=== PATIENT | female | born 1975 | race Caucasian/White ===

== ENCOUNTER 2017-06-18 12:44 | Emergency (ER) | payer BC ==
[~2017-06-18] VITALS: Ht 162.6 cm; Wt 52.0 kg
[2017-06-18 12:52] VITALS: Ht 162.6 cm; Wt 52.0 kg
[2017-06-18] MEDS ORDERED: ONDANSETRON 4 MG INJ IV STA (13:31)
[2017-06-18] MEDS ORDERED: SOD CHLORIDE 0.9% 1,000 ML IV STA (13:31)
[2017-06-18] MEDS ORDERED: KETOROLAC 30 MG INJ IV STA (13:31)
[2017-06-18 14:09] LABS: ADD UMIC NO; UR ASCORBIC ACID NEGATIVE (NEGATIVE); UR BILIRUBIN (Dip) NEGATIVE (NEGATIVE); UR BLOOD (Dip) NEGATIVE (NEGATIVE); UR CLARITY CLEAR (CLEAR); UR COLOR STRAW (YELLOW); UR GLUCOSE (Dip) NEGATIVE (NEGATIVE); UR KETONES (Dip) NEGATIVE (NEGATIVE); UR LEUKOCYTE ESTERASE (Dip) NEGATIVE Leu/ul (NEGATIVE); UR NITRITE (Dip) NEGATIVE (NEGATIVE); UR SPECIFIC GRAVITY (Dip) 1.003 (1.003-1.030); UR TOTAL PROTEIN (Dip) NEGATIVE (NEGATIVE); UR UROBILINOGEN (Dip) NEGATIVE (NEGATIVE)
[2017-06-18 14:41] LABS: BASOPHILS % 0.5 % (0.0-2.0); EOSINOPHILS # 0.2 10^3/ul (0.0-0.5); EOSINOPHILS % 5.5 % (0.0-7.0); HEMATOCRIT 38.5 % (37.0-47.0); HEMOGLOBIN 13.4 g/dl (12.0-16.0); LYMPHOCYTES # 0.9 10^3/ul (0.8-2.9); LYMPHOCYTES % 20.5 % (15.0-51.0); MEAN CORPUSCULAR HEMOGLOBIN 31.4 pg (29.0-33.0); MEAN CORPUSCULAR HGB CONC 34.8 g/dl (32.0-37.0); MEAN CORPUSCULAR VOLUME 90.2 fl (82.0-101.0); MEAN PLATELET VOLUME 10.4 fl (7.4-10.4); MONOCYTE # 0.5 10^3/ul (0.3-0.9); MONOCYTES % 10.3 % (0.0-11.0); NEUTROPHIL # 2.7 10^3/ul (1.6-7.5); PLATELET COUNT 243 10^3/UL (140-415); RED BLOOD COUNT 4.27 10^6/ul (4.20-5.40); RED CELL DISTRIBUTION WIDTH 12.4 % (11.5-14.5); WHITE BLOOD COUNT 4.4 10^3/ul (4.8-10.8)
--- NOTE | 2017-06-18 14:45 | RADRPT ---
PROCEDURE: CT Abdomen and Pelvis without contrast CLINICAL INDICATION: Abdominal pain, GI bleed with inflammatory bowel syndrome and mucus discharge for rectum TECHNIQUE: Transaxial images were obtained through the abdomen and pelvis on a multi-slice scanner without the intravenous contrast administration. Some oral contrast had previously been given. Sagi ttal and coronal re-formations were subsequently reconstructed. One or more of the following dose reduction techniques were used: - Automated exposure control. - Adjustment of the mA and/or kV according to patient size. - Use of iterative reconstruction technique. Radiation dose: CTDIvol = 4.34 mGy; DLP = 242.70 mGy-cm. COMPARISON: No prior studies are available for comparison. FINDINGS: Lung bases: The visualized lung bases appear unremarkable. Bilateral breast implants are noted. Liver: Normal in size and in attenuation. There is no focal lesion. Gallbladder: The wall is not thickened. No radiopaque stones are identified. Bile ducts: The intra and extrahepatic bile ducts are normal in caliber. Pancreas: Appears normal with no mass or inflammation evident. Spleen: Normal in size with no focal lesion. Adrenals: Normal with no mass identified. Kidneys, ureters and bladder: The right kidney appears normal. The left kidney is quite elongated a nd there appears to be a duplex collecting system. The left renal contour is lobulated compatible w ith cortical scarring. The ureters are normal in caliber and no ureteroliths are identified. The erika dder appears unremarkable. 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 No adnexal mass is evident. Phleboliths are seen in the pelvis. Stomach and bowel: The stomach and bowel appear unremarkable. Substantial stool is seen throughout the colon with no evidence of bowel obstruction or inflammation. Appendix: Portions of a normal-appearing vermiform appendix are evident. Peritoneum: No free intraperitoneal fluid or air is identified. Aorta: Normal in caliber with no aneurysmal dilatation. There is minimal atherosclerotic vascular ca lcification. IVC: Unremarkable. Lymph nodes: No pathologically enlarged nodes are identified. Osseous structures: The osseous elements appear intact. IMPRESSION: 1. The left kidney appears quite elongated with the suggestion of a duplex collecting system and mi ld cortical scarring. The right kidney appears normal. There is no evidence of urinary outflow obs truction or ureterolithiasis and the bladder appears normal. 2. Substantial stool is seen throughout the colon without evidence of bowel obstruction or inflamma tion with portions of an unremarkable appearing vermiform appendix evident. 3. The endometrial cavity appears bicornuate. 4. There is no free intraperitoneal fluid or air. 5. Bilateral breast implants. Physician All Date Time Electronically viewed and signed by Rick Colon Physician on 06/18/2017 14:45 RH/
[2017-06-18 14:58] LABS: ALBUMIN 4.7 g/dl (3.3-4.9); ALBUMIN/GLOBULIN RATIO 1.34; BILIRUBIN,INDIRECT 0.3 mg/dl (0-1.1); BILIRUBIN,TOTAL 0.3 mg/dl (0.2-1.3); CALCIUM 9.3 mg/dl (8.4-10.2); CREATININE 0.83 mg/dl (0.44-1.00); POTASSIUM 3.8 mmol/L (3.5-5.1); TOTAL PROTEIN 8.2 g/dl (6.1-8.1)
--- NOTE | 2017-06-18 15:20 | ERD ---
ER Documentation Chief Complaint Date/Time DATE: 06/18/17 TIME: 15:16 Chief Complaint BIB SELF C/O RB X 10 DAYS, WORSE W BM, DIFF ABD PAIN, LBM X 2D, MUCOUS W BM HPI Patient is a 42-year-old female with past medical history of depression, general anxiety disorder, proctitis, external hemorrhoids, fibromyalgia, chronic constipation, chronic fatigue who presents to the emergency department for a"flare up of my GI problems." Patient states that she has had chronic rectal bleeding for the last 3 years. Patient states over the last 2-3 weeks that she has had rectal bleeding as well as mucousy stools. Patient reports diffuse abdominal pain and cramping. Patient denies any dysuria, frequency, urgency. Patient denies any excessive vaginal bleeding. Patient admits to nausea however she denies any vomiting. She reports tactile fevers. Of note, she states she has been to numerous hospitals as well as seen numerous GI specialist. Patient had endoscopy and colonoscopy in 2013 which showed "colitis " however patient states that she believes her symptoms are most consistent with "ulcerative colitis." She denies any recent travel. No sick contacts. Patient has an appointment with a new GI specialist on July 05. ROS All systems reviewed and are negative except as per history of present illness. Medications Home Meds Active Scripts Dicyclomine Hcl* (Bentyl*) 10 Mg Capsule, 10 MG PO QID, #20 CAP Prov:MARY ANN KING PA-C 06/18/17 Hydrocodone/Acetaminophen ([place] 5-325 Tablet) 1 Each Tablet, 1 TAB PO Q6H Y for PAIN, #7 TAB Prov:MARY ANN KING PA-C 06/18/17 Docusate Sodium* (Colace*) 100 Mg Capsule, 100 MG PO TID, #30 CAP Prov:MARY ANN KING PA-C 06/18/17 Allergies Allergies: Coded Allergies: egg (Verified Allergy, Unknown, 06/18/17) FmHx Family History: No diabetes Physical Exam Vitals Vital Signs Date Time Temp Pulse Resp B/P Pulse Ox O2 Delivery O2 Flow Rate FiO2 06/18/17 12:52 99.3 105 18 139/90 100 Physical Exam GENERAL: Well-developed, well-nourished female. Appears in no acute distress. HEAD: Normocephalic, atraumatic. EYES: Pupils are equally reactive bilaterally. EOMs grossly intact. No conjunctival erythema. ENT: Moist mucous membranes. No uvula deviation. No kissing tonsils. NECK: Supple. No meningismus. Normal range of motion of the neck. LUNG: Clear to auscultation bilaterally. No rhonchi, wheezing, rales or coarse breath sounds. HEART: Regular rate and rhythm. No murmurs, rubs or gallops. ABDOMEN: Soft band nondistended. Tender to palpation in all 4 quadrants. Positive bowel sounds in all four quadrants. No rebound tenderness, no guarding. (-) McBurney's point tenderness. No CVA tenderness. RECTAL: Normal anus with external hemorrhoids noted. Unable to rule out internal hemorrhoids. Normal anal sphincter tone. Stool guaiac positive. BACK: No midline tenderness. EXTREMITIES: Equal pulses bilaterally. No peripheral clubbing, cyanosis or edema. No unilateral leg swelling. NEUROLOGIC: Alert and oriented. Moving all four extremities without any difficulty. Normal speech. Steady gait. SKIN: Normal color. Warm and dry. No rashes or lesions. Result Diagram: 06/18/17 1428 06/18/17 1428 Results 24 hrs Laboratory Tests Test 06/18/17 13:45 06/18/17 14:28 06/18/17 15:02 Urine Color STRAW Urine Clarity CLEAR Urine pH 7.0 Urine Specific [place] 1.003 Urine Ketones NEGATIVEmg/dL Urine Nitrite NEGATIVEmg/dL Urine Bilirubin NEGATIVEmg/dL Urine Urobilinogen NEGATIVEmg/dL Urine Leukocyte Esterase NEGATIVELeu/ul Urine Hemoglobin NEGATIVEmg/dL Urine Glucose NEGATIVEmg/dL Urine Total Protein NEGATIVEmg/dl White Blood Count 4.410^3/ul Red Blood Count 4.2710^6/ul Hemoglobin 13.4g/dl Hematocrit 38.5% Mean Corpuscular Volume 90.2fl Mean Corpuscular Hemoglobin 31.4pg Mean Corpuscular Hemoglobin Concent 34.8g/dl Red Cell Distribution Width 12.4% Platelet Count 87771^3/UL Mean Platelet Volume 10.4fl Neutrophils % 63.0% Lymphocytes % 20.5% Monocytes % 10.3% Eosinophils % 5.5% Basophils % 0.5% Nucleated Red Blood Cells % 0.0/100WBC Neutrophils # 2.710^3/ul Lymphocytes # 0.910^3/ul Monocytes # 0.510^3/ul Eosinophils # 0.210^3/ul Basophils # 0.010^3/ul Nucleated Red Blood Cells # 0.010^3/ul Sodium Level 144mmol/L Potassium Level 3.8mmol/L Chloride Level 102mmol/L Carbon Dioxide Level 27mmol/L Anion Gap 19 Blood Urea Nitrogen 9mg/dl Creatinine 0.83mg/dl Glucose Level 94mg/dl Calcium Level 9.3mg/dl Total Bilirubin 0.3mg/dl Direct Bilirubin 0.00mg/dl Indirect Bilirubin 0.3mg/dl Aspartate Amino Transf (AST/SGOT) 26IU/L Alanine Aminotransferase (ALT/SGPT) 33IU/L Alkaline Phosphatase 43IU/L Total Protein 8.2g/dl Albumin 4.7g/dl Globulin 3.50g/dl Albumin/Globulin Ratio 1.34 Lipase 104U/L Stool Occult Blood POSITIVE Current Medications Medications (Trade) Dose Ordered Sig/Rafa Route PRN Reason Start Time Stop Time Status Last Admin Dose Admin Sodium Chloride (NS) 1,000 ml @ 1,000 mls/hr Q1H STAT IV 06/18/17 13:31 06/18/17 14:30 DC 06/18/17 14:37 Ondansetron HCl (Zofran Inj) 4 mg ONCE STAT IV 06/18/17 13:31 06/18/17 13:37 DC 06/18/17 14:38 Ketorolac Tromethamine (Toradol) 30 mg ONCE STAT IV 06/18/17 13:31 06/18/17 13:37 DC 06/18/17 14:37 Procedures/MDM ED COURSE: The patient was stable throughout ED course. I kept the patient and/or family informed of laboratory and diagnostic imaging results throughout the ED course. DIAGNOSTIC IMAGING: Read by radiologist. Patient: BINH JOHNSON : 1975 Age: 42 Sex: F MR #: [id number] [facility] #: [id number] DOS: 06/18/17 1331 Ordering MD: MARY ANN KING PA-C Location: [facility] Room/Bed: PROCEDURE: CT Abdomen and Pelvis without contrast CLINICAL INDICATION: Abdominal pain, GI bleed with inflammatory bowel syndrome and mucus discharge for rectum TECHNIQUE: Transaxial images were obtained through the abdomen and pelvis on a multi-slice scanner without the intravenous contrast administration. Some oral contrast had previously been given. Sagittal and coronal re-formations were subsequently reconstructed. One or more of the following dose reduction techniques were used: - Automated exposure control. - Adjustment of the mA and/or kV according to patient size. - Use of iterative reconstruction technique. Radiation dose: CTDIvol = 4.34 mGy; DLP = 242.70 mGy-cm. COMPARISON: No prior studies are available for comparison. FINDINGS: Lung bases: The visualized lung bases appear unremarkable. Bilateral breast implants are noted. Liver: Normal in size and in attenuation. There is no focal lesion. Gallbladder: The wall is not thickened. No radiopaque stones are identified. Bile ducts: The intra and extrahepatic bile ducts are normal in caliber. Pancreas: Appears normal with no mass or inflammation evident. Spleen: Normal in size with no focal lesion. Adrenals: Normal with no mass identified. Kidneys, ureters and bladder: The right kidney appears normal. The left kidney is quite elongated and there appears to be a duplex collecting system. The left renal contour is lobulated compatible with cortical scarring. The ureters are normal in caliber and no ureteroliths are identified. The bladder appears unremarkable. 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 No adnexal mass is evident. Phleboliths are seen in the pelvis. Stomach and bowel: The stomach and bowel appear unremarkable. Substantial stool is seen throughout the colon with no evidence of bowel obstruction or inflammation. Appendix: Portions of a normal-appearing vermiform appendix are evident. Peritoneum: No free intraperitoneal fluid or air is identified. Aorta: Normal in caliber with no aneurysmal dilatation. There is minimal atherosclerotic vascular calcification. IVC: Unremarkable. Lymph nodes: No pathologically enlarged nodes are identified. Osseous structures: The osseous elements appear intact. IMPRESSION: 1. The left kidney appears quite elongated with the suggestion of a duplex collecting system and mild cortical scarring. The right kidney appears normal. There is no evidence of urinary outflow obstruction or ureterolithiasis and the bladder appears normal. 2. Substantial stool is seen throughout the colon without evidence of bowel obstruction or inflammation with portions of an unremarkable appearing vermiform appendix evident. 3. The endometrial cavity appears bicornuate. 4. There is no free intraperitoneal fluid or air. 5. Bilateral breast implants. Physician All Date Time Electronically viewed and signed by Physician All on 06/18/2017 14:45 RH/ CC: MARY ANN KING PA-C MEDICATIONS GIVEN: Toradol IV, IV fluids, Zofran Patient tolerated medication well with no adverse reactions. Patient was unable to obtain a ride home so nonarcotic strength medication was given to the patient. Patient will be discharged with stronger medication. MEDICAL DECISION MAKING: This is a 42-year-old female with a significant past medical history who presents emergency department for concerns of diffuse abdominal pain, mucousy stools and chronic rectal bleeding 3 years. Patient has been seen by numerous providers as well as had a colonoscopy and endoscopy done in the past. Patient feels as if her symptoms are consistent with ulcerative colitis, however she has never been diagnosed with this condition. Vital signs were reviewed. Patient is afebrile. Abdominal exam revealed diffuse tenderness to palpation in all 4 quadrants. The exam did reveal external hemorrhoids, unable to rule out internal hemorrhoids. CBC showed no evidence of systemic infection or severe anemia. CMP showed no evidence of electrolyte abnormalities, severe acidosis, alkalosis, renal failure, or liver disease. Lipase showed no evidence of acute pancreatitis. UA showed no evidence of acute infection or hematuria. Low suspicion for UTI, pyelonephritis or nephrolithiasis. Urine test was negative. Occult guaiac testing did show positive. CT abdomen and pelvis showed 1. The left kidney appears quite elongated with the suggestion of a duplex collecting system and mild cortical scarring. The right kidney appears normal. There is no evidence of urinary outflow obstruction or ureterolithiasis and the bladder appears normal. 2. Substantial stool is seen throughout the colon without evidence of bowel obstruction or inflammation with portions of an unremarkable appearing vermiform appendix evident. 3. The endometrial cavity appears bicornuate. 4. There is no free intraperitoneal fluid or air. 5. Bilateral breast implants. At this time, patient's presentation is most consistent with chronic abdominal pain, rectal bleeding mucousy stools. At this time there is no indication for inpatient admission given that patient has normal hemoglobin level and does not have a white count. Patient's rectal bleeding is likely due to internal hemorrhoids versus external hemorrhoids. I do not believe that patient has a true GI bleed at this time. I have explained to the patient at length that I am unable to rule out inflammatory bowel disorders at this time. Patient will need to follow-up with a GI specialist and/or obtain an colonoscopy versus endoscopy and an outpatient basis. Patient does have an appointment scheduled on July 05. Low suspicion for ACS, mesenteric ischemia, bowel obstruction, lower lobe pneumonia, DKA, bowel perforation, cholecystitis, choledocholithiasis , pancreatitis, , ectopic , PID, ovarian torsion or tubo- ovarian abscess. Able to rule out internal hemorrhoids. PRESCRIPTIONS: [place], Bentyl, Colace She was advised to take Colace when taking any [place] to prevent any worsening constipation. DISCHARGE: At this time, patient is stable for discharge and outpatient management. I have instructed the patient to follow-up with his/her primary care physician in 1-2 days. I have instructed the patient to promptly return to the ER at any time for any new or worsening symptoms including increased pain, nausea, vomiting, diarrhea, fever, weakness or LOC. The patient and/or family expressed understanding of and agreement with this plan. All questions were answered. Home care instructions were provided. Departure Diagnosis: Primary Impression: Abdominal pain, diffuse Additional Impression: Hemorrhoid Hemorrhoid type: unspecified Qualified Code: K64.9 - Hemorrhoids, unspecified hemorrhoid type Condition: Stable Referrals: DANISHA MCKEON MD, NAGARAJ M MD DESIGAN, GNANA MD GORDON, RICHARD K MD JOGANI, PIYUSH K MD [facility] Additional Instructions: Call your primary care doctor TOMORROW for an appointment during the next 1-2 days.See the doctor sooner or return here if your condition worsens before your appointment time. The referral information for GI specialist. Follow-up with your GI specialist as scheduled on July 05. Take pain medication as needed. Take Colace when taking any [place]. MARY ANN KING PA-C Jun 18, 2017 15:20
[2017-06-18] MEDS ORDERED: DICY10CA60 PO (16:00)
[2017-06-18] MEDS ORDERED: DOCU-144 PO (16:00)
[2017-06-18] MEDS ORDERED: HYDR-906 PO (16:00)
== END 2017-06-18 17:02 | disposition home or self-care (01) ==
LOC: FTE 12:44
DX: R10.84 Generalized abdominal pain (principal); K64.9 Unspecified hemorrhoids
CPT/HCPCS: 36415; 74176; 80053; 81003; 82270; 83690; 85025; 96374; 96375; 99285; J1885; J2405; J7030

== ENCOUNTER 2018-01-15 13:30 | Day surgery (SDC) | END 2018-01-15 18:37 | disposition home or self-care (01) ==